=== PATIENT | female | born 1950 | race Caucasian/White ===

== ENCOUNTER → 2016-10-21 | Outpatient (CLI) | payer BC, OTHER ==
[~2016-10-21] MED LIST: /TIOT18INH; ACET65TA; ALTA10CA; ASPI325T; CEFT500T; ESTR0.5T; LASI20TA; LIPI80TA; METF500T4; MILKSUS; ORASONE; POTA20TA2; VENTAER; XOPE1.252; ZEBE5TAB
[2016-10-21 19:28] LABS: ALBUMIN 3.7 GM/DL (3.2-5.2); ALKALINE PHOSPHATASE 105 U/L (45-117); ALT/SGPT 19 U/L (12-78); ANION GAP 12 MEQ/L (8-16); AST/SGOT 9 U/L (15-37); BILIRUBIN,TOTAL 0.4 MG/DL (0.2-1.0); BLOOD UREA NITROGEN 13 MG/DL (7-18); CALCIUM LEVEL 9.7 MG/DL (8.8-10.2); CARBON DIOXIDE LEVEL 28 MEQ/L (21-32); CHLORIDE LEVEL 97 MEQ/L (98-107); GLOMERULAR FILTRATION RATE > 60.0 (>45); GLUCOSE, FASTING 162 MG/DL (80-110); POTASSIUM SERUM 3.5 MEQ/L (3.5-5.1); SODIUM LEVEL 137 MEQ/L (136-145); TOTAL PROTEIN 7.4 GM/DL (6.4-8.2)
== END ==
LOC: M WUC 14:28
PROVIDERS: ATTEND Nurse Practitioner Family
DX: E55.9 Vitamin D deficiency, unspecified (principal); I10 Essential (primary) hypertension

== ENCOUNTER → 2017-04-28 | Outpatient (CLI) | payer MEDICARE, BC, OTHER ==
--- NOTE | 2017-04-28 13:25 | REP ---
THYROID ULTRASOUND: Comparison 05/02/2016. Real-time sonographic evaluation of the thyroid performed. Right lobe measures 3.2 x 1.6 x 1.6 cm and left lobe 3.7 x 1.5 x 1.7 cm. Solid nodule in the right upper pole is unchanged in appearance compared to prior study, measuring 1.2 x 0.9 x 1.0 cm. Small heterogeneous nodule in the left upper pole measures 3 x 2 x 3 mm. Followup ultrasound recommended in 1 year. IMPRESSION: Stable right lobe nodule. Recommend followup ultrasound in 1 year. Tiny 3 mm nodule seen in the left upper pole. Signed by Jose Bowens MD 04/28/2017 01:29 P
== END ==
LOC: M RAD 12:39
PROVIDERS: ATTEND Internal Medicine Endocrinology, Diabetes & Metabolism
DX: E04.1 Nontoxic single thyroid nodule (principal)

== ENCOUNTER → 2017-08-09 | Outpatient (CLI) | payer MEDICARE, BC, OTHER ==
[2017-08-09 17:10] LABS: BASO # 0.1 10^3/uL (0.0-0.2); BASO % 0.6 % (0.0-1.0); EOS # 0.2 10^3/uL (0.0-0.50); EOS % 2.4 % (0.0-3.0); IMMATURE GRANULOCYTE % 0.3 % (0-0); LYMPH # 2.1 10^3/uL (1.5-4.5); LYMPH % 22.8 % (24.0-44.0); MEAN CORPUSCULAR HEMOGLOBIN 29.4 pg (27.0-33.0); MEAN CORPUSCULAR HGB CONC 34.1 g/dl (32.0-36.5); MEAN CORPUSCULAR VOLUME 86.4 fl (80.0-96.0); MONO % 10.9 % (0.0-5.0); NEUTROPHILS # 5.7 10^3/uL (1.8-7.7); PLATELET COUNT, AUTOMATED 256 10^3/uL (150-450); RED CELL DISTRIBUTION WIDTH 12.2 % (11.5-14.5); WHITE BLOOD COUNT 9.1 10^3/uL (4.0-10.0)
[2017-08-09 17:21] LABS: ALBUMIN 3.7 GM/DL (3.2-5.2); ALBUMIN/GLOBULIN RATIO 1.06 (1.00-1.93); ALKALINE PHOSPHATASE 140 U/L (45-117); ALT/SGPT 26 U/L (12-78); ANION GAP 9 MEQ/L (8-16); AST/SGOT 13 U/L (7-37); BILIRUBIN,TOTAL 0.4 MG/DL (0.2-1.0); BLOOD UREA NITROGEN 18 MG/DL (7-18); CALCIUM LEVEL 9.3 MG/DL (8.8-10.2); CARBON DIOXIDE LEVEL 29 MEQ/L (21-32); CHLORIDE LEVEL 96 MEQ/L (98-107); CHOLESTEROL LEVEL 160 MG/DL (<200); CREATININE FOR GFR 0.94 MG/DL (0.55-1.02); GLOMERULAR FILTRATION RATE > 60.0 (>45); GLUCOSE, FASTING 308 MG/DL (80-110); POTASSIUM SERUM 4.1 MEQ/L (3.5-5.1); SODIUM LEVEL 134 MEQ/L (136-145); TOTAL PROTEIN 7.2 GM/DL (6.4-8.2); TRIGLYCERIDES LEVEL 157 MG/DL (<150)
== END ==
LOC: M WUC 14:15
PROVIDERS: ATTEND Nurse Practitioner Family
DX: E55.9 Vitamin D deficiency, unspecified (principal); E78.4 Other hyperlipidemia; I10 Essential (primary) hypertension

== ENCOUNTER → 2017-08-30 | Outpatient (CLI) | payer MEDICARE, BC, OTHER ==
[2017-08-30 13:17] LABS: ALBUMIN 3.4 GM/DL (3.2-5.2); BILIRUBIN,DIRECT 0.1 MG/DL (0.0-0.2); BILIRUBIN,TOTAL 0.4 MG/DL (0.2-1.0); TOTAL PROTEIN 6.8 GM/DL (6.4-8.2)
== END ==
LOC: M WUC 08:16
PROVIDERS: ATTEND Internal Medicine Cardiovascular Disease
DX: E78.00 Pure hypercholesterolemia, unspecified (principal); I25.10 Atherosclerotic heart disease of native coronary artery without angina pectoris; I10 Essential (primary) hypertension; Z79.899 Other long term (current) drug therapy

== ENCOUNTER → 2017-12-16 | Outpatient (CLI) | payer MEDICARE, BC, OTHER ==
[2017-12-16 17:20] LABS: ALBUMIN 3.9 GM/DL (3.2-5.2); ALBUMIN/GLOBULIN RATIO 1.08 (1.00-1.93); ALKALINE PHOSPHATASE 137 U/L (45-117); ALT/SGPT 25 U/L (12-78); ANION GAP 7 MEQ/L (8-16); AST/SGOT 18 U/L (7-37); BILIRUBIN,TOTAL 0.5 MG/DL (0.2-1.0); BLOOD UREA NITROGEN 17 MG/DL (7-18); CALCIUM LEVEL 9.5 MG/DL (8.8-10.2); CARBON DIOXIDE LEVEL 30 MEQ/L (21-32); CHLORIDE LEVEL 102 MEQ/L (98-107); CHOLESTEROL LEVEL 168 MG/DL (<200); CHOLESTEROL RISK RATIO 2.666 (<5); CREATININE FOR GFR 0.83 MG/DL (0.55-1.30); GLOMERULAR FILTRATION RATE > 60.0 (>45); GLUCOSE, FASTING 121 MG/DL (70-100); HDL CHOLESTEROL 63 MG/DL (>40); NON-HDL-C 105 MG/DL; POTASSIUM SERUM 4.3 MEQ/L (3.5-5.1); SODIUM LEVEL 139 MEQ/L (136-145); TOTAL PROTEIN 7.5 GM/DL (6.4-8.2); TRIGLYCERIDES LEVEL 85 MG/DL (<150)
[2017-12-16 17:27] LABS: TOTAL 25(OH) VITAMIN D 69.9 NG/ML (30.0-100.0)
== END ==
LOC: M WUC 10:56
DX: E55.9 Vitamin D deficiency, unspecified (principal); E78.4 Other hyperlipidemia; I10 Essential (primary) hypertension
CPT/HCPCS: 80053

== ENCOUNTER → 2018-04-17 | Outpatient (CLI) | payer MEDICARE, BC, OTHER | LOC: M RAD 13:36 | DX: E04.2 Nontoxic multinodular goiter (principal) | CPT/HCPCS: 76536 ==

== ENCOUNTER → 2018-05-20 | Outpatient (CLI) | payer MEDICARE, OTHER, BC ==
[2018-05-20 13:45] LABS: TOTAL 25(OH) VITAMIN D 59.9 NG/ML (30.0-100.0)
== END ==
LOC: M WUC 10:28
DX: E55.9 Vitamin D deficiency, unspecified (principal)
CPT/HCPCS: 82306

== ENCOUNTER → 2018-08-30 | Outpatient (CLI) | payer MEDICARE, OTHER, BC ==
[2018-08-30 17:09] LABS: ALBUMIN/GLOBULIN RATIO 1.14 (1.00-1.93); ALKALINE PHOSPHATASE 140 U/L (45-117); ALT/SGPT 26 U/L (12-78); ANION GAP 8 MEQ/L (8-16); AST/SGOT 23 U/L (7-37); BILIRUBIN,DIRECT 0.1 MG/DL (0.0-0.2); BILIRUBIN,TOTAL 0.5 MG/DL (0.2-1.0); BLOOD UREA NITROGEN 14 MG/DL (7-18); CALCIUM LEVEL 9.6 MG/DL (8.8-10.2); CARBON DIOXIDE LEVEL 29 MEQ/L (21-32); CHLORIDE LEVEL 102 MEQ/L (98-107); CHOLESTEROL LEVEL 182 MG/DL (<200); CHOLESTEROL RISK RATIO 2.757 (<5); CREATININE FOR GFR 0.79 MG/DL (0.55-1.30); GLOMERULAR FILTRATION RATE > 60.0 (>45); GLUCOSE, FASTING 118 MG/DL (70-100); HDL CHOLESTEROL 66 MG/DL (>40); LDH LACTATE DEHYDROGENASE 259 U/L (84-246); LDL CHOLESTEROL 97 MG/DL (<100); NON-HDL-C 116 MG/DL; POTASSIUM SERUM 3.8 MEQ/L (3.5-5.1); SODIUM LEVEL 139 MEQ/L (136-145); TOTAL PROTEIN 7.5 GM/DL (6.4-8.2); TRIGLYCERIDES LEVEL 94 MG/DL (<150)
== END ==
LOC: M WUC 10:14
DX: I25.10 Atherosclerotic heart disease of native coronary artery without angina pectoris (principal); I10 Essential (primary) hypertension; E78.2 Mixed hyperlipidemia; Z51.81 Encounter for therapeutic drug level monitoring; Z79.899 Other long term (current) drug therapy
CPT/HCPCS: 83615

== ENCOUNTER → 2018-10-30 | Outpatient (CLI) | payer MEDICARE, OTHER, BC ==
[2018-10-30 17:07] LABS: BASO # 0.1 10^3/uL (0.0-0.2); BASO % 0.4 % (0.0-1.0); EOS # 0.2 10^3/uL (0.0-0.50); HEMATOCRIT 33.9 % (36.0-47.0); LYMPH # 2.7 10^3/uL (1.5-4.5); LYMPH % 15.9 % (24.0-44.0); MEAN CORPUSCULAR HGB CONC 32.4 g/dl (32.0-36.5); MEAN CORPUSCULAR VOLUME 86.3 fl (80.0-96.0); MONO # 1.3 10^3/uL (0.0-0.8); MONO % 7.9 % (0.0-5.0); NEUTROPHILS # 12.5 10^3/uL (1.8-7.7); NEUTROPHILS % 74.2 % (36.0-66.0); PLATELET COUNT, AUTOMATED 779 10^3/uL (150-450); RED BLOOD COUNT 3.93 10^6/uL (4.00-5.40); WHITE BLOOD COUNT 16.9 10^3/uL (4.0-10.0)
== END ==
LOC: M WUC 12:25
PROVIDERS: ATTEND Nurse Practitioner Family
DX: D64.9 Anemia, unspecified (principal)

== ENCOUNTER → 2018-11-17 | Outpatient (CLI) | payer MEDICARE, OTHER, BC ==
[2018-11-17 12:34] LABS: BASO % 0.6 % (0.0-1.0); EOS # 0.2 10^3/uL (0.0-0.50); EOS % 3.2 % (0.0-3.0); LYMPH # 1.4 10^3/uL (1.5-4.5); LYMPH % 20.1 % (24.0-44.0); MEAN CORPUSCULAR HEMOGLOBIN 29.3 pg (27.0-33.0); MEAN CORPUSCULAR HGB CONC 32.4 g/dl (32.0-36.5); MEAN CORPUSCULAR VOLUME 90.7 fl (80.0-96.0); MONO # 0.7 10^3/uL (0.0-0.8); MONO % 9.7 % (0.0-5.0); NEUTROPHILS # 4.8 10^3/uL (1.8-7.7); NEUTROPHILS % 66.1 % (36.0-66.0); PLATELET COUNT, AUTOMATED 270 10^3/uL (150-450); RED BLOOD COUNT 3.75 10^6/uL (4.00-5.40); WHITE BLOOD COUNT 7.2 10^3/uL (4.0-10.0)
[2018-11-17 12:45] LABS: ALBUMIN 3.4 GM/DL (3.2-5.2); ALT/SGPT 21 U/L (12-78); BILIRUBIN,TOTAL 0.3 MG/DL (0.2-1.0); BLOOD UREA NITROGEN 10 MG/DL (7-18); CALCIUM LEVEL 9.3 MG/DL (8.8-10.2); CARBON DIOXIDE LEVEL 28 MEQ/L (21-32); CHLORIDE LEVEL 104 MEQ/L (98-107); CHOLESTEROL LEVEL 174 MG/DL (<200); CREATININE FOR GFR 0.62 MG/DL (0.55-1.30); GLOMERULAR FILTRATION RATE > 60.0 (>45); GLUCOSE, FASTING 132 MG/DL (70-100); HDL CHOLESTEROL 50 MG/DL (>40); IRON (FE) 49 UG/DL (50-170); LDL CHOLESTEROL 96 MG/DL (<100); NON-HDL-C 124 MG/DL; POTASSIUM SERUM 3.8 MEQ/L (3.5-5.1); SODIUM LEVEL 141 MEQ/L (136-145); TRIGLYCERIDES LEVEL 139 MG/DL (<150)
[2018-11-17 12:53] LABS: TOTAL 25(OH) VITAMIN D 72.1 NG/ML (30.0-100.0)
[2018-11-17 13:08] LABS: HEMOGLOBIN A1c 7.9 %
[2018-11-19 11:00] LABS: VITAMIN B12 LEVEL 489 PG/ML (232-1245)
== END ==
LOC: M WUC 08:46
PROVIDERS: ATTEND Nurse Practitioner Family
DX: D50.9 Iron deficiency anemia, unspecified (principal); E55.9 Vitamin D deficiency, unspecified; E11.9 Type 2 diabetes mellitus without complications; E78.49 Other hyperlipidemia

== ENCOUNTER → 2018-11-18 | Outpatient (REF) | payer MEDICARE, OTHER ==
[2018-11-18 17:25] LABS: APPEARANCE, URINE HAZY (CLEAR); BACTERIA, URINE AUTO 1+ (NEGATIVE); BILIRUBIN, URINE AUTO NEGATIVE (NEGATIVE); BLOOD, URINE BLOOD NEGATIVE (NEGATIVE); CALCIUM OXALATE CRYSTALS SMALL; COLOR, URINE YELLOW (YELLOW); GLUCOSE, URINE (UA) AUTO NEGATIVE (NEGATIVE); KETONE, URINE AUTO NEGATIVE (NEGATIVE); LEUKOCYTE ESTERASE, URINE AUTO NEGATIVE (NEGATIVE); NITRITE, URINE AUTO POSITIVE (NEGATIVE); PROTEIN, URINE AUTO NEGATIVE (NEGATIVE); RBC, URINE AUTO 2 /HPF (0-3); SPECIFIC GRAVITY URINE AUTO 1.021 (1.002-1.035); SQUAMOUS EPITHELIAL CELL UR AU 2 /HPF (0-6); WBC, URINE AUTO 5 /HPF (0-3)
== END ==
LOC: M LAB REF 16:12
PROVIDERS: ATTEND Nurse Practitioner Family
DX: E11.9 Type 2 diabetes mellitus without complications (principal)

== ENCOUNTER → 2018-12-08 | Outpatient (REF) | payer MEDICARE, OTHER ==
[2018-12-08 18:01] LABS: AMORPHOUS SEDIMENT MODERATE (NEGATIVE); APPEARANCE, URINE CLOUDY (CLEAR); BACTERIA, URINE AUTO NEGATIVE (NEGATIVE); BILIRUBIN, URINE AUTO NEGATIVE (NEGATIVE); BLOOD, URINE BLOOD NEGATIVE (NEGATIVE); COLOR, URINE YELLOW (YELLOW); GLUCOSE, URINE (UA) AUTO NEGATIVE (NEGATIVE); KETONE, URINE AUTO NEGATIVE (NEGATIVE); LEUKOCYTE ESTERASE, URINE AUTO NEGATIVE (NEGATIVE); NITRITE, URINE AUTO NEGATIVE (NEGATIVE); PROTEIN, URINE AUTO NEGATIVE (NEGATIVE); RBC, URINE AUTO 0 /HPF (0-3); SPECIFIC GRAVITY URINE AUTO 1.014 (1.002-1.035); SQUAMOUS EPITHELIAL CELL UR AU 0 /HPF (0-6); UROBILINOGEN, URINE AUTO 0.2 mg/dL (0.0-2.0); WBC, URINE AUTO 0 /HPF (0-3)
== END ==
LOC: M LAB REF 16:24
PROVIDERS: ATTEND Nurse Practitioner Family
DX: N39.0 Urinary tract infection, site not specified (principal)

== ENCOUNTER → 2019-01-06 | Outpatient (CLI) | payer MEDICARE, OTHER ==
[2019-01-06 19:48] LABS: BASO # 0.1 10^3/uL (0.0-0.2); BASO % 0.6 % (0.0-1.0); EOS # 0.3 10^3/uL (0.0-0.50); EOS % 3.1 % (0.0-3.0); HEMATOCRIT 36.8 % (36.0-47.0); HEMOGLOBIN 12.2 g/dl (12.0-15.5); LYMPH # 2.3 10^3/uL (1.5-4.5); LYMPH % 22.7 % (24.0-44.0); MEAN CORPUSCULAR HEMOGLOBIN 28.8 pg (27.0-33.0); MEAN CORPUSCULAR HGB CONC 33.2 g/dl (32.0-36.5); MEAN CORPUSCULAR VOLUME 86.8 fl (80.0-96.0); NEUTROPHILS # 6.3 10^3/uL (1.8-7.7); NEUTROPHILS % 63.4 % (36.0-66.0); PLATELET COUNT, AUTOMATED 261 10^3/uL (150-450); RED BLOOD COUNT 4.24 10^6/uL (4.00-5.40); WHITE BLOOD COUNT 9.9 10^3/uL (4.0-10.0)
[2019-01-06 20:06] LABS: TOTAL 25(OH) VITAMIN D 48.8 NG/ML (30.0-100.0)
== END ==
LOC: M WUC 16:47
PROVIDERS: ATTEND Nurse Practitioner Family
DX: D50.9 Iron deficiency anemia, unspecified (principal); E55.9 Vitamin D deficiency, unspecified

== ENCOUNTER 2019-07-01 16:17 | Emergency (ER) | payer MEDICARE, BC, OTHER ==
[~2019-07-01] VITALS: Ht 160 cm; Wt 122.7 kg
[~2019-07-01 16:17] MED LIST changes: -/TIOT18INH; +SPIR1CAP
[2019-07-01] MEDS ORDERED: LANTINJ4 SQ (17:22)
[2019-07-01] MEDS ORDERED: ATOR80TA59 PO (17:22)
[2019-07-01] MEDS ORDERED: BREO1INH INH (17:22)
[2019-07-01] MEDS ORDERED: NOVOINJ3 SQ (17:22)
[2019-07-01] MEDS ORDERED: CICL8SOL3 TOP (17:22)
[2019-07-01] MEDS ORDERED: LOSA100T50 PO (17:22)
[2019-07-01] MEDS ORDERED: FURO40TA2 PO (17:22)
--- NOTE | 2019-07-01 18:17 | REP ---
CHEST, TWO VIEWS: Two views of the chest are performed and compared to prior study of 02/26/2018. There is chronic interstitial prominence which is stable. No new infiltrate is seen. The heart is normal in size. Mediastinal silhouette is unchanged. There is mild biapical pleural thickening. There are degenerative changes of the spine. IMPRESSION: Chronic changes are stable without evidence of acute infiltrate. Electronically Signed by Jose Bowens MD 07/01/2019 08:27 P
[2019-07-01 18:40] LABS: BASO # 0.1 10^3/uL (0.0-0.2); BASO % 0.6 % (0.0-1.0); EOS # 0.3 10^3/uL (0.0-0.5); EOS % 2.7 % (0.0-3.0); HEMATOCRIT 36.9 % (36.0-47.0); HEMOGLOBIN 12.3 g/dl (12.0-15.5); LYMPH # 2.1 10^3/uL (1.5-5.0); LYMPH % 19.8 % (24.0-44.0); MEAN CORPUSCULAR HEMOGLOBIN 29.9 pg (27.0-33.0); MEAN CORPUSCULAR HGB CONC 33.3 g/dl (32.0-36.5); MEAN CORPUSCULAR VOLUME 89.6 fl (80.0-96.0); MONO % 8.9 % (0.0-5.0); NEUTROPHILS # 7.2 10^3/uL (1.5-8.5); NEUTROPHILS % 67.8 % (36.0-66.0); PLATELET COUNT, AUTOMATED 230 10^3/uL (150-450); RED BLOOD COUNT 4.12 10^6/uL (4.00-5.40); WHITE BLOOD COUNT 10.7 10^3/uL (4.0-10.0)
[2019-07-01 19:08] LABS: INR 1.05; PROTHROMBIN TIME 13.4 SECONDS (11.8-14.0)
[2019-07-01 19:22] LABS: ALBUMIN 3.1 GM/DL (3.2-5.2); ALT/SGPT 16 U/L (12-78); BILIRUBIN,DIRECT 0.1 MG/DL (0.0-0.2); BILIRUBIN,TOTAL 0.3 MG/DL (0.2-1.0); BLOOD UREA NITROGEN 16 MG/DL (7-18); CALCIUM LEVEL 8.9 MG/DL (8.8-10.2); CARBON DIOXIDE LEVEL 27 MEQ/L (21-32); CHLORIDE LEVEL 105 MEQ/L (98-107); CK-MB VALUE MASS 1.2 NG/ML (<3.6); CPK CREATINE PHOSPHOKINASE 146 U/L (26-192); CREATININE FOR GFR 0.84 MG/DL (0.55-1.30); GLOMERULAR FILTRATION RATE > 60.0 (>45); GLUCOSE, FASTING 232 MG/DL (70-100); LIPASE 92 U/L (73-393); MB/CK RELATIVE INDEX 0.82 (< OR =4); NT-PRO BNP 45 PG/ML (<125); POTASSIUM SERUM 3.5 MEQ/L (3.5-5.1); SODIUM LEVEL 140 MEQ/L (136-145); TROPONIN I < 0.02 NG/ML (< 0.10)
--- NOTE | 2019-07-01 19:24 | REPVR ---
PROCEDURE INFORMATION: Exam: US Duplex Bilateral Lower Extremity Veins Exam date and time: 07/01/2019 6:58 PM Clinical history: 69 years old, female; Swelling (edema) of limb; Lower extremity, bilateral TECHNIQUE: Imaging protocol: Real-time duplex ultrasound of the Bilateral Lower Extremities with 2-D hope scale, color Doppler flow and spectral waveform analysis with image documentation. Complete exam focused on the bilateral lower extremity veins. COMPARISON: No relevant prior studies available. FINDINGS: Right deep veins: Unremarkable. The common femoral, femoral, proximal profunda femoral and popliteal veins are patent without thrombus. Normal Doppler waveforms. Normal compressibility and/or augmentation response. Right superficial veins: Saphenofemoral junction is patent without thrombus. Left deep veins: Unremarkable. The common femoral, femoral, proximal profunda femoral and popliteal veins are patent without thrombus. Normal Doppler waveforms. Normal compressibility and/or augmentation response. Left superficial veins: Saphenofemoral junction is patent without thrombus. Soft tissues: Unremarkable. IMPRESSION: No sonographic evidence of deep vein thrombosis. Electronically signed by: Jac Seaman On 07/01/2019 19:23:53 PM
[2019-07-01 20:00] VITALS: BP 154/73
--- NOTE | 2019-07-01 21:44 | ECGEPIP ---
[facility] - ED Test Date: 2019-07-01 Pat Name: SANJANA COSTA Department: Room: - Gender: Female Apron Man: ALEX : 1950 Requested By: Sandra Andrews Order Number: [id number] Reading MD: Sandra Andrews Measurements Intervals [place] Rate: 84 P: 68 OK: 172 QRS: 10 QRSD: 101 T: 32 QT: 307 QTc: 363 Interpretive Statements SINUS RHYTHM NONSPECIFIC T-WAVE ABNORMALITY SIMILAR 05/09/15 Electronically Signed on 07-01-2019 21:44:22 EDT by Sandra Andrews
[2019-07-02 09:40] LABS: HEPATITIS A ANTIBODY IGM NEGATIVE (NEGATIVE); HEPATITIS B CORE ANTIBODY IGM NEGATIVE (NEGATIVE); HEPATITIS B SURFACE ANTIGEN NEGATIVE (NEGATIVE); HEPATITIS C VIRUS ABY INDEX 0.1 INDEX (<0.8)
== END 2019-07-01 20:15 | disposition home or self-care (01) ==
LOC: M ED 16:17
DX: I10 Essential (primary) hypertension (principal); R06.02 Shortness of breath; E11.9 Type 2 diabetes mellitus without complications; J44.9 Chronic obstructive pulmonary disease, unspecified; J45.909 Unspecified asthma, uncomplicated; E78.5 Hyperlipidemia, unspecified; Z79.899 Other long term (current) drug therapy; Z79.4 Long term (current) use of insulin; Z88.2 Allergy status to sulfonamides; Z88.8 Allergy status to other drugs, medicaments and biological substances; Z87.891 Personal history of nicotine dependence

== ENCOUNTER → 2019-09-08 | Outpatient (CLI) | payer MEDICARE, BC, OTHER ==
[~2019-09-08] MED LIST changes: +ATOR80TA59 PO; +BREO1INH INH; +CICL8SOL3 TOP; +FURO40TA2 PO; +LANTINJ4 SQ; +LOSA100T50 PO; +NOVOINJ3 SQ
== END ==
LOC: M WUC 11:28
PROVIDERS: ATTEND Internal Medicine Endocrinology, Diabetes & Metabolism
DX: R74.8 Abnormal levels of other serum enzymes (principal)

== ENCOUNTER 2019-10-07 10:43 | Emergency (ER) | payer MEDICARE, BC, OTHER ==
[~2019-10-07] VITALS: Ht 160 cm; Wt 122.7 kg
[2019-10-07] MEDS ORDERED: CALC200T3 PO (10:58)
[2019-10-07] MEDS ORDERED: SENN1TAB41 (10:58)
[2019-10-07] MEDS ORDERED: CALC600T60 PO (10:58)
[2019-10-07] MEDS ORDERED: B-12100T2 PO (10:58)
[2019-10-07] MEDS ORDERED: METO25TA4 (10:58)
[2019-10-07] MEDS ORDERED: BREO1INH PO (10:58)
[2019-10-07] MEDS ORDERED: ALCL0.05 (10:58)
[2019-10-07] MEDS ORDERED: IRBE150T12 (10:58)
[2019-10-07] MEDS ORDERED: VITA100066 PO (10:58)
[2019-10-07] MEDS ORDERED: ESTR1CRE PV (10:58)
[2019-10-07] MEDS ORDERED: PROAAER10 INH (10:58)
[2019-10-07] MEDS ORDERED: ISOVUE-370 76% 100ML VIAL (Q9967) As Ordered ONE (12:07)
[2019-10-07 12:13] LABS: BASO # 0.1 10^3/uL (0.0-0.2); BASO % 0.5 % (0.0-1.0); EOS # 0.1 10^3/uL (0.0-0.5); EOS % 0.6 % (0.0-3.0); HEMATOCRIT 37.5 % (36.0-47.0); HEMOGLOBIN 12.3 g/dl (12.0-15.5); LYMPH # 2.2 10^3/uL (1.5-5.0); LYMPH % 15.6 % (24.0-44.0); MEAN CORPUSCULAR HEMOGLOBIN 28.3 pg (27.0-33.0); MEAN CORPUSCULAR HGB CONC 32.8 g/dl (32.0-36.5); MEAN CORPUSCULAR VOLUME 86.4 fl (80.0-96.0); MONO # 1.9 10^3/uL (0.0-0.8); MONO % 12.9 % (0.0-5.0); NEUTROPHILS # 10.1 10^3/uL (1.5-8.5); NEUTROPHILS % 69.8 % (36.0-66.0); PLATELET COUNT, AUTOMATED 238 10^3/uL (150-450); RED BLOOD COUNT 4.34 10^6/uL (4.00-5.40); WHITE BLOOD COUNT 14.4 10^3/uL (4.0-10.0)
[2019-10-07 12:25] LABS: INR 1.19; PROTHROMBIN TIME 14.9 SECONDS (11.8-14.0)
[2019-10-07 12:26] LABS: PARTIAL THROMBOPLASTIN TIME 32.7 SECONDS (25.0-38.4)
--- NOTE | 2019-10-07 12:30 | REP ---
Clinical: Swelling and erythema. Technique: Axial contrast enhanced images from the skull base to the thoracic inlet with coronal and sagittal re-formations using 100 ml Isovue 370 intravenous contrast material. Findings: The inflammatory stranding with swelling and adenopathy centered in the right submandibular soft tissues suggesting an infectious/inflammatory process including cellulitis. No drainable collection/abscess. No mass lesion. The underlying osseous structures as well as the remainder of the neck examination appears normal. Incidental small fluid level in the left maxillary sinus. Airway is patent and midline. Impression: 1. Right-sided submandibular adenopathy with swelling and subcutaneous infiltration suggest cellulitis and infectious/inflammatory process. No drainable collection or abscess. 2. Remainder examination appears normal. Electronically Signed by Jim Whitaker MD 10/07/2019 12:22 P
[2019-10-07 12:45] LABS: ERYTHROCYTE SEDIMENTATION RATE 61 mm/hr (0-30)
[2019-10-07] MEDS ORDERED: CEFTAROLINE FOSAMIL 600 MG in D5W MINI-BAG PLUS 50 ML IV ONE (13:00)
[2019-10-07] MEDS ORDERED: IBUP80TA PO (14:51)
[2019-10-07] MEDS ORDERED: DOXY100C37 PO (14:51)
--- NOTE | 2019-10-07 14:53 | REP ---
CHEST, TWO VIEWS: Two views of the chest are performed and compared to prior study of 07/01/2019. There is chronic interstitial prominence, which is stable. No new infiltrate is seen. Heart is not enlarged. Mediastinal silhouette is unchanged. There is mild calcification of the thoracic aorta. There are degenerative changes of the spine. IMPRESSION: Stable chronic interstitial changes. No acute superimposed infiltrate. Electronically Signed by Jose Bowens MD 10/07/2019 04:34 P
[2019-10-07 15:04] VITALS: BP 139/66
[2019-10-07 19:21] LABS: ALBUMIN 3.2 GM/DL (3.2-5.2); BILIRUBIN,DIRECT 0.1 MG/DL (0.0-0.2); BILIRUBIN,TOTAL 0.5 MG/DL (0.2-1.0); C REACTIVE PROTEIN QUANTITATIV 8.41 MG/DL (0.00-0.30); TOTAL PROTEIN 7.3 GM/DL (6.4-8.2)
== END 2019-10-07 15:21 | disposition home or self-care (01) ==
LOC: M ED 10:43
DX: L03.211 Cellulitis of face (principal); E11.9 Type 2 diabetes mellitus without complications; E78.5 Hyperlipidemia, unspecified; I10 Essential (primary) hypertension; J44.9 Chronic obstructive pulmonary disease, unspecified; Z20.828 Contact with and (suspected) exposure to other viral communicable diseases; Z79.4 Long term (current) use of insulin; Z79.51 Long term (current) use of inhaled steroids; Z79.899 Other long term (current) drug therapy; Z88.8 Allergy status to other drugs, medicaments and biological substances
CPT/HCPCS: 36415; 70491; 71046; 80047; 80076; 81001; 83605; 85025; 85610; 85652; 85730; 86140; 87040; 96365; 99284; J0712; Q9967

== ENCOUNTER 2019-10-09 11:04 | Emergency (ER) | payer MEDICARE, BC, OTHER ==
[~2019-10-09] VITALS: Ht 160 cm; Wt 122.7 kg
[~2019-10-09 11:04] MED LIST changes: +ALCL0.05; +B-12100T2 PO; +BREO1INH PO; +CALC200T3 PO; +CALC600T60 PO; +DOXY100C37 PO; +ESTR1CRE PV; +IBUP80TA PO; +IRBE150T12; +METO25TA4; +PROAAER10 INH; +SENN1TAB41; +VITA100066 PO
[2019-10-09 12:10] LABS: BASO # 0.1 10^3/uL (0.0-0.2); BASO % 0.6 % (0.0-1.0); EOS # 0.3 10^3/uL (0.0-0.5); EOS % 3.3 % (0.0-3.0); HEMATOCRIT 35.6 % (36.0-47.0); HEMOGLOBIN 11.8 g/dl (12.0-15.5); LYMPH # 1.6 10^3/uL (1.5-5.0); LYMPH % 16.6 % (24.0-44.0); MEAN CORPUSCULAR HEMOGLOBIN 28.6 pg (27.0-33.0); MEAN CORPUSCULAR HGB CONC 33.1 g/dl (32.0-36.5); MEAN CORPUSCULAR VOLUME 86.4 fl (80.0-96.0); MONO # 1.3 10^3/uL (0.0-0.8); MONO % 12.8 % (0.0-5.0); NEUTROPHILS # 6.5 10^3/uL (1.5-8.5); NEUTROPHILS % 66.3 % (36.0-66.0); PLATELET COUNT, AUTOMATED 245 10^3/uL (150-450); RED BLOOD COUNT 4.12 10^6/uL (4.00-5.40); WHITE BLOOD COUNT 9.8 10^3/uL (4.0-10.0)
[2019-10-09 12:39] LABS: ALT/SGPT 30 U/L (12-78); BILIRUBIN,DIRECT < 0.1 MG/DL (0.0-0.2); BILIRUBIN,TOTAL 0.4 MG/DL (0.2-1.0); BLOOD UREA NITROGEN 10 MG/DL (7-18); C REACTIVE PROTEIN QUANTITATIV 4.77 MG/DL (0.00-0.30); CALCIUM LEVEL 9.5 MG/DL (8.8-10.2); CARBON DIOXIDE LEVEL 25 MEQ/L (21-32); CHLORIDE LEVEL 105 MEQ/L (98-107); CREATININE FOR GFR 0.74 MG/DL (0.55-1.30); GLOMERULAR FILTRATION RATE > 60.0 (>45); GLUCOSE, FASTING 166 MG/DL (70-100); SODIUM LEVEL 137 MEQ/L (136-145)
[2019-10-09 12:44] LABS: ERYTHROCYTE SEDIMENTATION RATE 63 mm/hr (0-30)
[2019-10-09 13:44] VITALS: BP 135/63
== END 2019-10-09 13:53 | disposition home or self-care (01) ==
LOC: M ED 11:04
DX: L03.211 Cellulitis of face (principal); E11.9 Type 2 diabetes mellitus without complications; I50.9 Heart failure, unspecified; I25.10 Atherosclerotic heart disease of native coronary artery without angina pectoris; Z79.899 Other long term (current) drug therapy; Z79.4 Long term (current) use of insulin; Z88.2 Allergy status to sulfonamides; Z88.8 Allergy status to other drugs, medicaments and biological substances

== ENCOUNTER → 2019-12-08 | Outpatient (CLI) | payer MEDICARE, BC ==
[~2019-12-08] MED LIST changes: -IRBE150T12; +IRBE150T7
--- NOTE | 2019-12-08 20:05 | REP ---
Soft-tissue ultrasound of the neck. History: Soft tissue mass in the anterior neck in the midline. The patient relates that this is decreased in size. Submandibular gland swelling. Findings: Ultrasound of the lump in the midline submandibular region shows multiple small lymph nodes. The largest measures 1.5 x 0.8 x 1.9 cm. Question of a 7 mm cyst. No other abnormality. Soft tissue neck CT study from October 07, 2019 showed submental lymph nodes in the midline and on the right. These findings appear similar. Consider comparison soft-tissue neck CT study. Electronically Signed by Saroj Meyers MD 12/09/2019 08:56 A
== END ==
LOC: M LRY 14:01
PROVIDERS: ATTEND Family Medicine
DX: R60.9 Edema, unspecified (principal)
CPT/HCPCS: 76536; 85025; 85652; 86140; G0463

== ENCOUNTER → 2019-12-08 | Outpatient (REF) | payer MEDICARE, BC ==
[2019-12-08 20:20] LABS: BASO # 0.1 10^3/uL (0.0-0.2); BASO % 0.5 % (0.0-1.0); EOS # 0.3 10^3/uL (0.0-0.5); EOS % 2.7 % (0.0-3.0); HEMATOCRIT 39.2 % (36.0-47.0); HEMOGLOBIN 12.4 g/dl (12.0-15.5); LYMPH # 2.4 10^3/uL (1.5-5.0); LYMPH % 22.9 % (24.0-44.0); MEAN CORPUSCULAR HEMOGLOBIN 28.4 pg (27.0-33.0); MEAN CORPUSCULAR HGB CONC 31.6 g/dl (32.0-36.5); MEAN CORPUSCULAR VOLUME 89.7 fl (80.0-96.0); MONO # 0.9 10^3/uL (0.0-0.8); MONO % 8.8 % (0.0-5.0); NEUTROPHILS # 6.9 10^3/uL (1.5-8.5); NEUTROPHILS % 64.7 % (36.0-66.0); PLATELET COUNT, AUTOMATED 242 10^3/uL (150-450); RED BLOOD COUNT 4.37 10^6/uL (4.00-5.40); WHITE BLOOD COUNT 10.6 10^3/uL (4.0-10.0)
[2019-12-08 20:49] LABS: ERYTHROCYTE SEDIMENTATION RATE 52 mm/hr (0-30)
== END ==
LOC: M SFHCLERA 13:49
PROVIDERS: ATTEND Family Medicine
DX: R60.9 Edema, unspecified (principal)

== ENCOUNTER → 2020-01-11 | Outpatient (CLI) | payer MEDICARE, BC ==
[2020-01-11 18:02] LABS: BLOOD UREA NITROGEN 10 MG/DL (7-18); CREATININE FOR GFR 0.62 MG/DL (0.55-1.30); GLOMERULAR FILTRATION RATE > 60.0 (>45)
== END ==
LOC: M WUC 11:29
PROVIDERS: ATTEND Otolaryngology Otolaryngic Allergy
DX: R22.1 Localized swelling, mass and lump, neck (principal)

== ENCOUNTER → 2020-01-19 | Outpatient (CLI) | payer MEDICARE, BC, OTHER ==
[~2020-01-19] MED LIST changes: +ISOVUE-370 76% 100ML VIAL (Q9967) As Ordered ONE
--- NOTE | 2020-01-19 09:08 | REP ---
SOFT-TISSUE NECK CT STUDY WITH IV CONTRAST: HISTORY: Neck mass. The patient reports swelling in the middle of the left side of the neck. Comparison soft tissue neck CT study is from October 07, 2019. CT CONTRAST DOSE: 75 mL of intravenous Isovue [address] FINDINGS: There are degenerative disc changes at each level in the cervical spine with straightening of the cervical lordosis. No bony destructive lesion is appreciated. There is a small mucous retention cyst in the left maxillary sinus. The visualized paranasal sinuses are otherwise clear. Vascular calcification is seen in the distal vertebral and distal internal carotid arteries bilaterally and at the carotid bifurcations bilaterally. Visualized superior mediastinal structures are unremarkable. The lung apices are essentially clear. Thyroid lobes are normal in size and symmetric. Submandibular glands are unremarkable bilaterally. The right parotid gland has a normal appearance. The left parotid gland appears to be surgically absent. There is some stable postoperative fibrosis along the sternocleidomastoid muscle post peritectomy. There is no visible left-sided neck mass or left neck adenopathy. The previously noted submental and right cervical lymphadenopathy has resolved. No new mass or cyst is seen. No glottic or subglottic airway lesion is seen. Epiglottis is unremarkable. Tonsillar and peritonsillar soft tissues are unremarkable. IMPRESSION: The patient is apparently status post removal of the left parotid gland. Recently noted right cervical adenopathy has resolved. No neck mass or adenopathy is seen today. Electronically Signed by Saroj Meyers MD 01/19/2020 12:12 P
== END ==
LOC: M RAD 07:02
PROVIDERS: ATTEND Otolaryngology Otolaryngic Allergy
DX: R22.1 Localized swelling, mass and lump, neck (principal); Z90.89 Acquired absence of other organs
CPT/HCPCS: 70491; Q9967

== ENCOUNTER → 2020-03-22 | Outpatient (CLI) | payer MEDICARE, BC, OTHER ==
[~2020-03-22] MED LIST changes: -ISOVUE-370 76% 100ML VIAL (Q9967) As Ordered ONE
--- NOTE | 2020-03-22 15:53 | REP ---
REASON: Tobacco abuse. Followup exam. Latest prior for comparison is 02/22/2019 with other priors also reviewed. As per the protocol, only lung window images were sent to the read station for interpretation. No new abnormal nodules, masses, or opacities have developed. Grossly the mediastinum and pulmonary hilar are unchanged. Grossly the imaged upper abdomen and imaged osseous structures are unchanged. IMPRESSION: Stable low dose screening CT examination of the lungs. Lung RADS category 1. Electronically Signed by Garth Ho DO 03/22/2020 05:06 P
== END ==
LOC: M RAD 12:36
PROVIDERS: ATTEND Internal Medicine Pulmonary Disease
DX: Z12.2 Encounter for screening for malignant neoplasm of respiratory organs (principal); Z87.891 Personal history of nicotine dependence

== ENCOUNTER → 2020-08-24 | Outpatient (CLI) | payer MEDICARE, BC, OTHER ==
--- NOTE | 2020-08-24 11:57 | REP ---
INDICATION: THYROID NODULES. COMPARISON: Ultrasound 04/17/2018, 04/28/2017; CT 01/19/2020 TECHNIQUE: Standard thyroid sonographic technique FINDINGS: The right lobe measures 3.4 x 1.9 x 1.7 cm and the left lobe is a 3.1 x 1.8 x 1.7 cm. On the previous exam the right lobe was 3.3 cm long in the left 3.5 cm long. There is a hyperechoic solid nodule the upper pole on the right 1.5 x 1.2 x 1.2 cm. The left lobe does not show any nodules with hypoechoic or cystic nodule in the upper pole on the previous ultrasound no longer visible. The isthmus has a thickness of 5 mm. There are no other findings. IMPRESSION: 1. Solid hypoechoic nodule in the right upper lobe 1.5 x 1.2 x 1.2 cm, previously 1.5 x 1.1 x 1 cm and essentially unchanged. 2. Hypoechoic 2 mm nodule upper pole is no longer visible. Isthmus has a thickness of the 5 mm. No new or significant finding. <Electronically signed by Rickie Drew > 08/24/20 [id number]
== END ==
LOC: M RAD 10:02
PROVIDERS: ATTEND Internal Medicine Endocrinology, Diabetes & Metabolism
DX: E04.2 Nontoxic multinodular goiter (principal)

== ENCOUNTER → 2021-02-22 | Outpatient (CLI) | payer MEDICARE, BC, OTHER | LOC: M LABSMTC 10:53 | PROVIDERS: ATTEND Anesthesiology Pain Medicine | DX: Z01.818 Encounter for other preprocedural examination (principal); Z20.822 Contact with and (suspected) exposure to COVID-19 ==

== ENCOUNTER → 2021-03-28 | Outpatient (CLI) | payer MEDICARE, BC, OTHER ==
--- NOTE | 2021-03-28 12:15 | REP ---
INDICATION: CHRONIC OBSTRUCTIVE PULMONARY DISEASE, UNSPECIFIED. COMPARISON: Multiple latest 03/22/2020 TECHNIQUE: Axial noncontrast images from the thoracic inlet to the upper abdomen using low-dose lung screening technique (LDCT). As per the protocol only lung window images were sent to the read station for interpretation. FINDINGS: No new abnormal nodules, masses, or opacities have developed, however, there is a 5 mm size nodule in the left lower lobe which may be developing irregular margins. This nodule was 1st identified on a CT angiogram of the chest obtained 05/09/2015 when it measured 3 mm. Low-dose screening CT examination of the lungs of 02/22/2019 showed this nodule to be stable and again on low-dose screening CT of the lungs of 03/22/2020. Grossly, the mediastinum and pulmonary yennifer are unchanged. Grossly, the imaged upper abdomen and imaged osseous structures are unchanged. There are no pleural or pericardial effusions. IMPRESSION: There is a nodule in the left lower lobe as described above. It appears to have slightly enlarged and may be developing irregular margins. That is somewhat difficult to assess using low-dose screening CT of the lungs technique. According to the revised Fleischner society criteria this nodule would represent a category 4A lesion for which a 3 month follow-up is recommended. <Electronically signed by Garth Ho > 03/28/21 [id number]
== END ==
LOC: M RAD 11:33
PROVIDERS: ATTEND Internal Medicine Pulmonary Disease
DX: Z12.2 Encounter for screening for malignant neoplasm of respiratory organs (principal); J44.9 Chronic obstructive pulmonary disease, unspecified; R91.8 Other nonspecific abnormal finding of lung field; Z87.891 Personal history of nicotine dependence

== ENCOUNTER → 2021-04-02 | Outpatient (REF) | payer MEDICARE, BC, OTHER ==
[~2021-04-02] MED LIST changes: -DOXY100C37 PO; +DOXY1CAP62 PO
== END ==
LOC: M LAB REF 14:15
PROVIDERS: ATTEND Physician Assistant
DX: D23.72 Other benign neoplasm of skin of left lower limb, including hip (principal)
CPT/HCPCS: 11102; 88305; 88313; G0463

== ENCOUNTER → 2021-07-04 | Outpatient (REF) | payer MEDICARE, OTHER ==
[~2021-07-04] MED LIST changes: +DOXY-443 PO; -DOXY1CAP62 PO
== END ==
LOC: M LAB REF 13:56
PROVIDERS: ATTEND Physician Assistant
DX: L82.1 Other seborrheic keratosis (principal); D48.5 Neoplasm of uncertain behavior of skin
CPT/HCPCS: 11302; 88305; G0463

== ENCOUNTER → 2021-07-05 | Outpatient (CLI) | payer MEDICARE, BC, OTHER ==
[~2021-07-05] MED LIST changes: -DOXY-443 PO; +DOXY1CAP62 PO
--- NOTE | 2021-07-05 12:47 | REP ---
INDICATION: COPD. COMPARISON: Multiple comparison chest CT studies are reviewed dated March 28, 2021, March 22, 2020, February 22, 2019, and May 09, 2015. TECHNIQUE: Helical scanning is acquired. 3 mm axial images are generated. Coronal and sagittal MPR and coronal MIP images are generated. 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 The patient is status post mid lumbar spine fusion. On axial CT images, the previously identified left lower lobe nodule is again seen. This measures 4 mm today and is felt to be unchanged from most recent study of March 28, 2021. It measured 3 mm on the 2014 study. It may be very slightly larger than on the 2015 exam. There is linear fibrosis in the right middle lobe un changed. No new pulmonary nodule is seen. There is lingular segment left upper lobe linear fibrosis as well again seen unchanged. No pleural or pericardial effusion is seen. No hilar or mediastinal mass or adenopathy is observed. There is coronary artery vascular calcification again noted. Normal adrenal glands are seen bilaterally. The visualized upper abdominal structures are unremarkable. IMPRESSION: Stable 4 mm left lower lobe lung nodule very slightly increased from the 2014 study. No change from the most recent prior study of March 28, 2021. <Electronically signed by Luke Meyers > 07/05/21 [id number]
== END ==
LOC: M RAD 11:15
PROVIDERS: ATTEND Internal Medicine Pulmonary Disease
DX: R91.8 Other nonspecific abnormal finding of lung field (principal); J44.9 Chronic obstructive pulmonary disease, unspecified

== ENCOUNTER → 2021-08-07 | Outpatient (CLI) | payer MEDICARE, BC, OTHER ==
[~2021-08-07] MED LIST changes: +DOXY-443 PO; -DOXY1CAP62 PO
--- NOTE | 2021-08-07 10:51 | REP ---
INDICATION: ELEVATED LFT'S / JOSE CARLOS LEG SWELLING. COMPARISON: 05/09/2015. TECHNIQUE: Real-time sonographic evaluation of right upper quadrant performed. FINDINGS: The gallbladder demonstrates no evidence of intraluminal calculi, wall thickening or pericholecystic fluid. There is mild intraluminal sludge. There is no intrahepatic or extrahepatic biliary dilatation, common bile duct measures 3 mm in maximum diameter. There is diffuse increased echotexture of the liver compatible with diffuse fibrofatty infiltration. There is mild hepatomegaly, the length of the liver is approximately 18 cm. No liver mass is seen. The visualized pancreas is grossly unremarkable, not well seen due to overlying bowel gas. The right kidney demonstrates no hydronephrosis, with a normal size of 11.0 cm in length. No free fluid is seen. IMPRESSION: Mild gallbladder sludge without evidence of gallstones, gallbladder wall thickening, free fluid or biliary dilatation. Mild hepatomegaly with diffuse fibrofatty infiltration of the liver. <Electronically signed by Jose Bowens > 08/07/21 [id number]
--- NOTE | 2021-08-07 10:55 | REP ---
INDICATION: ELEVATED LFT'S / JOSE CARLOS LEG SWELLING COMPARISON: None. TECHNIQUE: Real time bowens scale and Duplex Doppler evaluation of the bilateral lower extremity arterial vasculature using linear high frequency transducer. FINDINGS: Bowens scale and duplex doppler images demonstrate mild atheromatous plaquing with areas of mild narrowing but no focal stenosis identified. There is no occlusion. Doppler interrogation demonstrates diffuse triphasic and biphasic arterial wave forms and relatively normal velocities bilaterally. There is monophasic waveform in the left anterior tibial artery proximally. MARA bilaterally is 0.68. Peak systolic velocities (cm/sec) Common femoral artery: Right 218; Left 159 Profunda femoris: Right 170; Left 120 SFA (proximal): Right 150; Left 188 SFA (mid): Right 119; Left 154 SFA (distal): Right 132; Left 117 Popliteal artery: Right 83; Left 76 ANNIE (prox.): Right 75; Left 29 Tibioperoneal trunk: Right not visualized; Left not visualized MEDICAL TECHNOLOGIST HEMATOLOGY (prox.): Right 96; Left 68 MEDICAL TECHNOLOGIST HEMATOLOGY (distal): Right 115; Left 123 ANNIE (distal): Right 91; Left 112 IMPRESSION: Atheromatous changes with areas of narrowing but no focal occlusion or stenosis. <Electronically signed by Jose Bowens > 08/07/21 [id number]
== END ==
LOC: M RAD 07:41
PROVIDERS: ATTEND Family Medicine
DX: R74.8 Abnormal levels of other serum enzymes (principal); M79.89 Other specified soft tissue disorders; K76.0 Fatty (change of) liver, not elsewhere classified; R16.0 Hepatomegaly, not elsewhere classified

== ENCOUNTER → 2021-10-03 | Outpatient (REF) | payer MEDICARE, BC, OTHER ==
[~2021-10-03] MED LIST changes: +LOSA100T45 PO; -LOSA100T50 PO
== END ==
LOC: M LAB REF 14:07
PROVIDERS: ATTEND Physician Assistant
DX: D48.5 Neoplasm of uncertain behavior of skin (principal)
CPT/HCPCS: 11102; 11900; 17110; 88305; G0463; J3301

== ENCOUNTER → 2022-07-22 | Outpatient (CLI) | payer MEDICARE, BC, OTHER ==
[~2022-07-22] MED LIST changes: +AMMO12CR7 TOP; +CHEL50TA2 PO; +CICL6.6S TOP; -CICL8SOL3 TOP; +CITRACAL MAXIMU1 TAB PO; +FLUO0.0118 EXT; +INSUH10VL SC; +LANTINJ4 SC; -LANTINJ4 SQ; +RAMI1CAP26 PO; +SPIR-10 PO; +VITA100093 PO; +VITA400C56 PO; +VITA500T37 PO
== END ==
LOC: M SLEEP 20:00
PROVIDERS: ATTEND Internal Medicine Pulmonary Disease
DX: G47.33 Obstructive sleep apnea (adult) (pediatric) (principal)

== ENCOUNTER → 2022-08-14 | Outpatient (CLI) | payer MEDICARE, BC, OTHER | LOC: M RAD 09:21 | PROVIDERS: ATTEND Internal Medicine Pulmonary Disease | DX: Z12.2 Encounter for screening for malignant neoplasm of respiratory organs (principal); Z87.891 Personal history of nicotine dependence ==

== ENCOUNTER → 2022-12-30 | Outpatient (CLI) | payer MEDICARE, BC, OTHER | LOC: M RAD 13:28 | PROVIDERS: ATTEND Internal Medicine Endocrinology, Diabetes & Metabolism | DX: E04.1 Nontoxic single thyroid nodule (principal) ==

== ENCOUNTER → 2023-10-10 | Outpatient (CLI) | payer MEDICARE, BC, OTHER ==
[~2023-10-10] MED LIST changes: -LOSA100T45 PO; +LOSA100T46 PO
== END ==
LOC: M RAD 10:33
PROVIDERS: ATTEND Internal Medicine Pulmonary Disease
DX: Z12.2 Encounter for screening for malignant neoplasm of respiratory organs (principal); Z87.891 Personal history of nicotine dependence

== ENCOUNTER → 2024-03-29 | Day surgery (SDC) | payer MEDICARE, BC ==
[~2024-03-29] VITALS: Ht 154.9 cm; Wt 113.0 kg
[~2024-03-29] MED LIST changes: +ALEN35TA56 PO; +ALPH600C PO; +ASPI81TA26 PO; +CITRTAB18 PO; +DOXY-323 PO; -DOXY-443 PO; +ESTR1CRE VA; +FURO20TA2 PO; +IBUP200C88 PO; +IRBE150T27; -IRBE150T7; +MAGN200T PO; +METH-855 PO; +MIRA3350 PO; +OXYB10TA23 PO; +RAMI10CA64 PO; -RAMI1CAP26 PO; -SENN1TAB41; +SENN1TAB85; +TREM100I SC; +VAGI10TA VA; +VENTAER INH; +VITA-148 PO
[2024-03-29] MEDS: NS 1,000 ML IV ONE (11:05)
[2024-03-29 11:26] VITALS: BP 139/71; TEMP 97.9; O2SAT 96
== END | disposition home or self-care (01) ==
LOC: M OPP 10:46
PROVIDERS: ATTEND Internal Medicine Gastroenterology
DX: Z12.11 Encounter for screening for malignant neoplasm of colon (principal); Z53.09 Procedure and treatment not carried out because of other contraindication

== ENCOUNTER → 2024-11-10 | Outpatient (CLI) | payer MEDICARE, BC ==
[~2024-11-10] MED LIST changes: -DOXY-323 PO; +DOXY-441 PO
[2024-11-12 16:42] LABS: QuantiFERON-TB Gold Plus NEGATIVE (NEGATIVE)
== END ==
LOC: M LAB 10:58
PROVIDERS: ATTEND Physician Assistant
DX: Z79.899 Other long term (current) drug therapy (principal)

== ENCOUNTER → 2024-11-25 | Outpatient (CLI) | payer MEDICARE, BC | LOC: M RAD 12:24 | PROVIDERS: ATTEND Internal Medicine Pulmonary Disease | DX: Z87.891 Personal history of nicotine dependence (principal) ==

== ENCOUNTER 2025-06-06 22:17 | Emergency (ER) | payer MEDICARE, BC ==
[~2025-06-06] VITALS: Ht 160 cm; Wt 113.6 kg
[~2025-06-06 22:17] MED LIST changes: -ALPH600C PO; +ALPH600C2 PO; +AMMO12CR4 TOP; -AMMO12CR7 TOP; -FLUO0.0118 EXT; +FLUO0.0131 EXT
[2025-06-06 22:20] VITALS: TEMP 97
[2025-06-06 22:41] LABS: BASO # 0.0 10^3/uL (0.0-0.2); BASO % 0.3 % (0.0-1.0); EOS # 0.3 10^3/uL (0.0-0.5); EOS % 2.3 % (0.0-3.0); LYMPH # 2.7 10^3/uL (1.5-5.0); LYMPH % 23.4 % (24.0-44.0); MONO # 1.1 10^3/uL (0.0-0.8); MONO % 9.3 % (2.0-8.0); NEUTROPHILS # 7.4 10^3/uL (1.5-8.5); NEUTROPHILS % 64.4 % (36.0-66.0); PLATELET COUNT, AUTOMATED 257 10^3/uL (150-450)
[2025-06-06 22:55] LABS: INR 0.97
[2025-06-06 23:12] LABS: CK-MB VALUE MASS 1.8 NG/ML (<3.6)
[2025-06-06 23:14] LABS: ALT/SGPT 14 U/L (7.0-40); AST/SGOT 73 U/L (<34); CALCIUM LEVEL 9.6 MG/DL (8.3-10.6); CARBON DIOXIDE LEVEL 24 MMOL/L (20-31); CHLORIDE LEVEL 105 MMOL/L (98-107); CREATININE FOR GFR 0.62 MG/DL (0.55-1.30); GLOMERULAR FILTRATION RATE > 90.0 (>39); POTASSIUM SERUM 4.0 MMOL/L (3.5-5.1); SODIUM LEVEL 140 MMOL/L (136-145)
[2025-06-06 23:23] LABS: CPK CREATINE PHOSPHOKINASE 137 U/L (34-145); MB/CK RELATIVE INDEX 1.31 (< OR =4)
[2025-06-07 02:01] VITALS: BP 111/51
[2025-06-07] MEDS: ACETAMINOPHEN 325 MG TAB PO ONE (02:14)
[2025-06-07] MEDS: ALBUTEROL SULFATE 2.5 MG/0.5 ML INH CONCENTRATE NEB SOLN NEB ONE (02:15)
[2025-06-07] MEDS ORDERED: DOXY-441 PO (03:15)
[2025-06-07 03:32] VITALS: O2SAT 95
[2025-06-07] MEDS: DOXYCYCLINE HYCLATE 100 MG TABLET PO ONE (03:37)
== END 2025-06-07 05:12 | disposition home or self-care (01) ==
LOC: M ED 22:17
DX: S20.211A Contusion of right front wall of thorax, initial encounter (principal); S92.404A Nondisplaced unspecified fracture of right great toe, initial encounter for closed fracture; J18.9 Pneumonia, unspecified organism; M43.12 Spondylolisthesis, cervical region; M48.02 Spinal stenosis, cervical region; R91.1 Solitary pulmonary nodule; Y04.8XXA Assault by other bodily force, initial encounter; Y92.009 Unspecified place in unspecified non-institutional (private) residence as the place of occurrence of the external cause; Y93.9 Activity, unspecified; Y99.9 Unspecified external cause status; Y07.45 Grandchild, perpetrator of maltreatment and neglect; E11.42 Type 2 diabetes mellitus with diabetic polyneuropathy; I11.0 Hypertensive heart disease with heart failure; I50.9 Heart failure, unspecified; F17.200 Nicotine dependence, unspecified, uncomplicated; Z88.1 Allergy status to other antibiotic agents; Z88.8 Allergy status to other drugs, medicaments and biological substances; Z88.2 Allergy status to sulfonamides; Z79.4 Long term (current) use of insulin; Z79.899 Other long term (current) drug therapy

== ENCOUNTER → 2025-07-06 | Outpatient (CLI) | payer MEDICARE, BC ==
[~2025-07-06] MED LIST changes: +METH-1100 PO; -METH-855 PO
== END ==
LOC: M WHC 09:15
PROVIDERS: ATTEND Family Medicine
DX: Z12.31 Encounter for screening mammogram for malignant neoplasm of breast (principal); R92.313 Mammographic fatty tissue density, bilateral breasts

== ENCOUNTER → 2025-07-06 | Outpatient (CLI) | payer MEDICARE, BC | LOC: M PLAIMG 09:20 | PROVIDERS: ATTEND Internal Medicine Pulmonary Disease | DX: J44.9 Chronic obstructive pulmonary disease, unspecified (principal); Z12.31 Encounter for screening mammogram for malignant neoplasm of breast; R92.313 Mammographic fatty tissue density, bilateral breasts ==